=== PATIENT | female | born 1940 | race Asian ===

== ENCOUNTER → 2022-03-17 | Outpatient (CLI) | payer MEDICARE, MEDICAID | END | disposition home or self-care (01) | LOC: RADMN 12:34 | PROVIDERS: ATTEND Internal Medicine Geriatric Medicine | DX: M47.814 Spondylosis without myelopathy or radiculopathy, thoracic region (principal); M85.88 Other specified disorders of bone density and structure, other site; M41.84 Other forms of scoliosis, thoracic region; M17.0 Bilateral primary osteoarthritis of knee; M25.78 Osteophyte, vertebrae; M25.762 Osteophyte, left knee; M25.761 Osteophyte, right knee; M54.50 Low back pain, unspecified | CPT/HCPCS: 72072; 73562-TC ==

== ENCOUNTER → 2022-09-10 | Outpatient (CLI) | payer MEDICARE, MEDICAID | END | disposition home or self-care (01) | LOC: RADMN 09:40 | PROVIDERS: ATTEND Internal Medicine Geriatric Medicine | DX: K59.00 Constipation, unspecified (principal); M47.816 Spondylosis without myelopathy or radiculopathy, lumbar region; M47.814 Spondylosis without myelopathy or radiculopathy, thoracic region; M41.84 Other forms of scoliosis, thoracic region; R10.9 Unspecified abdominal pain | CPT/HCPCS: 74022 ==

== ENCOUNTER → 2023-05-02 | Outpatient (CLI) | payer MEDICARE, MEDICAID | END | disposition home or self-care (01) | LOC: RADMN 11:42 | PROVIDERS: ATTEND Internal Medicine Geriatric Medicine | DX: M17.0 Bilateral primary osteoarthritis of knee (principal); M85.80 Other specified disorders of bone density and structure, unspecified site; M79.89 Other specified soft tissue disorders; M25.561 Pain in right knee; M25.562 Pain in left knee | CPT/HCPCS: 73562-TC ==

== ENCOUNTER → 2023-05-24 | Outpatient (CLI) | payer MEDICARE, MEDICAID | END | disposition home or self-care (01) | LOC: RADMN 14:18 | PROVIDERS: ATTEND Internal Medicine Geriatric Medicine | DX: M79.671 Pain in right foot (principal) | CPT/HCPCS: 73630-TC ==